=== PATIENT | female | born 1950 | race Caucasian/White ===

== ENCOUNTER → 2018-06-12 | Outpatient (CLI) | payer MEDICARE, BC ==
[~2018-06-12] MED LIST: HUMALOG100 UNIT/1; LANTUS100 UNIT/M SUBQ; METFORMIN HCL500 MG PO; SIMVASTATIN20 MG PO; ZESTRIL10 MG PO
== END ==
LOC: M.ULTRA 06-04 11:46
DX: K76.0 Fatty (change of) liver, not elsewhere classified (principal); N85.8 Other specified noninflammatory disorders of uterus

== ENCOUNTER → 2018-06-25 | Outpatient (CLI) | payer MEDICARE, BC | LOC: M.LAB 13:15 → M.CT 15:00 | PROVIDERS: Nurse Practitioner Family | DX: K57.30 Diverticulosis of large intestine without perforation or abscess without bleeding (principal) ==

== ENCOUNTER → 2018-07-10 | Outpatient (CLI) | payer MEDICARE, BC | LOC: M.RAD 10:05 | DX: Z12.31 Encounter for screening mammogram for malignant neoplasm of breast (principal) ==

== ENCOUNTER → 2020-03-03 | Outpatient (CLI) | payer MEDICARE, BC | LOC: M.RAD 09:58 | PROVIDERS: ATTEND Family Medicine | DX: Z12.31 Encounter for screening mammogram for malignant neoplasm of breast (principal) ==

== ENCOUNTER → 2021-05-03 | Outpatient (CLI) | payer MEDICARE, BC | LOC: M.RAD 14:06 | PROVIDERS: ATTEND Family Medicine | DX: Z12.31 Encounter for screening mammogram for malignant neoplasm of breast (principal) ==